=== PATIENT | female | born 1990 | race Caucasian/White ===

== ENCOUNTER 2023-03-18 20:19 | Emergency (ER) | payer MEDICARE, MEDICAID, SELFPAY ==
[2023-03-18 20:21] VITALS: BP 140/88
[2023-03-18 20:31] LABS: Glucose - Point of Care 359 mg/dl (70-99)
--- NOTE | 2023-03-18 21:00 | ED.GENMED ---
History of Present Illness
General
Chief Complaint: Seizure
Source: family
Exam Limitations: none
Time Seen by Provider: 03/18/23 20:38
Travel History
Have you had any contact with someone who has COVID-19?: No
Do you have any symptoms of coronavirus? Fever > 100 degrees, chills, cough, shortness of breath, sore throat, loss of taste or smell, muscle aches, or headache?: No
History of Present Illness
History of Present Illness:
See MDM
Past History
Past History
ED Past Medical History: NIDDM, Seizures and Other (Autism)
ED Past Surgical History: Cholecystectomy and Urological
Patient has exhibited threatening behavior?: No
PSI?: No
Social History
Tobacco: Non-smoker
Alcohol: None
Drug: None
Personal: Single
Living: with family
Employment: Not employed
Family History
Family History: Other (n/c)
Phy Exam
Physical Exam
Physical Exam:
See MDM
Course
Orders/Labs/Results
Orders:
Orders
03/18/23 20:48
0.9% Sodium Chloride 1000 ml [Nss] 1,000 ml IV BOLUS
Insulin Aspart [NOVOLOG vial] 9 units SC NOW STA
Lorazepam [Ativan] 1 mg IV NOW STA
03/18/23 21:14
Complete Blood Count/With Diff Urgent
Comprehensive Metabolic Panel Urgent
Abnormal Lab Results
03/18/23 03/18/23
20:29 21:14
Hct 36.7 L %
(37.0-47.0)
Immature Gran % 0.6 H %
(0-0.5)
Sodium 130 L mmol/L
(135-145)
Glucose 310 H mg/dl
(70-99)
POC Glucose 359 H mg/dl
(70-99)
03/18/23 21:14
03/18/23 21:14
Vital Signs
Initial and Last Documented VS:
Initial Vital Signs
Temp Pulse Resp BP Pulse Ox
98.3 F 88 18 140/88 95
03/18/23 20:21 03/18/23 20:21 03/18/23 20:21 03/18/23 20:21 03/18/23 20:21
Last Documented Vital Signs
Temp Pulse Resp BP Pulse Ox
98.3 F 85 18 109/91 98
03/18/23 20:21 03/18/23 22:08 03/18/23 22:08 03/18/23 22:14 03/18/23 22:08
MDM/Problems Addressed
Differential Diagnosis Includes:
HPI and MDM Narrative:
32-year-old female presenting with 2 seizures earlier today. Patient has a history of diabetes and autism. She has a seizure disorder for which she is on Onfi and Fycompa. Patient is compliant with her Onfi but she has been out of her Fycompa for
several weeks. When questioned, mother at bedside stating that the pharmacy was waiting for shipment until they finally told her that they believe the 12 mg tabs are discontinued.
Mother states she called and left a message for the oncologist Dr. Varela but she has not heard back
Patient found to be hyperglycemic. Mother states she has not received her insulin shot at home and she was drinking cranberry juice.
I had a long discussion with mother indicating that Fycompa is not on formulary here. I discussed that I am happy to write the 6 mg tablets instead. Mother is very comfortable with this plan. In the meantime, will give dose of Ativan and will
obtain basic blood work.
Physical exam
General: Sitting in bed comfortably. Appears to be at baseline mental status
HEENT: protecting airway. Dry mucous membranes
Neck: appears supple
CV: No evidence of cyanosis
Resp: No accessory muscle use
Abd: Non-distended
Extremities: No deformities
Neuro: alert. Moving all extremity
Psych: Flat affect
Skin: Intact
Problems Addressed including Acute and Chronic Conditions affecting care:
1. Breakthrough seizures
Acuity: acute
Prognosis: unstable
Details: Appears to be related to not taking the Fycompa. Will give dose of Ativan and prescribe Fycompa in different milligram tablets
2. Hyperglycemia
Acuity: acute
Prognosis: unstable
Details: Will give dose of insulin and rule out DKA
3. Dehydration
Acuity: acute
Prognosis: stable
Details: Will give IV fluids
Updates
No seizure activity while in the emergency department. Will write for Ativan as needed until the Fycompa prescription can be filled. Mother feels comfortable going home and understands return precautions
Differential Diagnosis (but not limited to): Hyperglycemia, DKA, dehydration
Testing considered: CT head
Drug therapy (if applicable): OTC meds, please see d/c instruction regarding Rx drugs
Amount and/or Complexity of Data Reviewed
Clinical info obtained from: Mother
External data reviewed: N/A
Labs I independently reviewed (but not limited to): Hyperglycemia, no leukocytosis
Radiology: N/A
Pulse Ox: not hypoxic
EKG independently reviewed: N/A
Cabinetmaker Supervisor: N/A
Critical Care: N/A
Risk of Complication:
Social Determinants of health: Good social support
Discussed with other providers: N/A
Escalation of Care includes Admit/Obs: After being observed in the Emergency Department, pt stable for discharge.
Occasional wrong word or 'sound a like' substitutions may have occurred due to the inherent limitations of voice recognition software. Read the chart carefully and recognize, using context, where substitutions have occurred.
*Critical Care Note
Total Time (30-74mins, 75-104mins- exclusive of procedures): Not Applicable
ED Attending Note
-
Portions of this chart may have been created with voice recognition software.� Occasional wrong word or��sound alike� substitutions may have occurred due to the inherent limitations of voice recognition software.
Discharge Plan
Departure
Patient Disposition: Home (Routine Discharge)
Date of Disposition: 03/18/23
Time of Disposition: 22:33
Patient with high blood pressure during this ER visit?: No
Discharge Problem:
Breakthrough seizure, Hyperglycemia
Instructions: Seizures, Adult (DC)
Prescriptions:
New
Fycompa 6 mg tablet
12 mg PO HS 30 Days Qty: 60 0RF
lorazepam [Ativan] 1 mg tablet
1 mg PO BID PRN (Reason: seizure) Qty: 14 0RF
No Action
clobazam [Onfi] 20 MG tablet
20 mg PO BID
atorvastatin 40 MG tablet
40 mg PO DAILY@1500
famotidine 40 MG tablet
40 mg PO DAILYPRN PRN (Reason: heartburn)
esomeprazole magnesium [Nexium] 40 MG capsule,delayed release(DR/EC)
40 mg PO DAILY
zolpidem 12.5 MG tablet,ext release multiphase
12.5 mg PO HSPRN PRN (Reason: sleep)
Fycompa 12 MG tablet
12 mg PO QPM
metformin 500 MG tablet extended release 24 hr
500 mg PO DAILY@1200
escitalopram oxalate 10 MG tablet
15 mg PO DAILY
insulin degludec [Tresiba FlexTouch U-100] 100 UNIT/ML insulin pen
16 unit SQ HS
Rx Instructions:
13 units given last PM, 04/09/22.
acetaminophen [Tylenol Extra Strength] 500 MG tablet
500 mg PO Q4HPRN PRN (Reason: pain)
sulfamethoxazole-trimethoprim [Bactrim DS] 800-160 mg tablet
1 tab PO BID 10 Days Qty: 20 0RF
Marijauna
75 ml PO DAILY@1900
naproxen sodium [All Day Pain Relief] 220 mg tablet
440 mg PO BID PRN (Reason: pain) Qty: 1 0RF
tramadol 50 mg tablet
50 mg PO TID PRN (Reason: severe pain) Qty: 10 0RF
methenamine hippurate 1 gram tablet
1 g PO BID Qty: 180 3RF
Rx Instructions:
start on day AFTER finishing Bactrim [Trimethoprim-Sulfa DS]
water Liquid
500 ea PO TID @ 0800,1200,1700 Qty: 500 0RF
Referrals:
Amira Kim MD [Family Provider] -
Activity Restrictions/Additional Instructions:
As we discussed, please follow-up with your neurologist. If you cannot fill the prescription, please make the neurology office aware. Return for worsening symptoms
Interventions
Interventions:
*Risk Screen - Suicide Last Done: 03/18/23 22:08
*General Assessment Last Done: 03/18/23 22:08
*Neglect/Abuse Screening Last Done: 03/18/23 22:08
*ED COVID-19 Vaccine History Last Done: 03/18/23 20:21
ED- Cardiac Assessment Last Done: 03/18/23 22:05
ED- Neurological Assessment Last Done: 03/18/23 22:05
ED- Pulmonary Assessment Last Done: 03/18/23 22:05
[2023-03-18 21:18] LABS: % Basophils 0.3 % (0-2); % Eosinophils 2.5 % (0-6); % Immature Granulocytes 0.6 % (0-0.5); % Lymphocytes 21.2 % (20.5-51.1); % Monocytes 4.3 % (1.7-9.3); % Neutrophils 71.1 % (42.2-75.2); Absolute Eosinophils 0.2 10^3/uL (0-0.7); Absolute Lymphocytes 1.3 10^3/uL (1.2-3.4); Absolute Monocytes 0.3 10^3/uL (0.1-0.6); Absolute Neutrophils 4.5 10^3/uL (1.4-6.5); Hematocrit 36.7 % (37.0-47.0); Mean Corp Hgb Conc. 35.4 g/dL (33.0-37.0); Mean Corpuscular Hgb 30.2 pg (27.0-31.0); Mean Corpuscular Volume 85.3 fL (81.0-99.0); Mean Platelet Volume 10.1 fL (7.4-10.4); Nucleated Red Blood Cells % 0 %; Platelet Count 222 10^3/uL (130-400); Red Cell Dist. Width 13.2 % (11.5-14.5); White Blood Cell Count 6.3 10^3/uL (4.8-10.8)
[2023-03-18] MEDS: ATIVAN 1 MG IV (21:33)
[2023-03-18] MEDS: NOVOLOG vial 9 UNITS SC (21:34)
[2023-03-18 21:36] LABS: ALT (SGPT) 24 U/L (0-35); AST (SGOT) 24 U/L (14-36); Alkaline Phosphatase 88 U/L (38-126); Blood Urea Nitrogen 14 mg/dl (7-17); Calcium 8.4 mg/dl (8.4-10.2); Carbon Dioxide 23 mmol/L (22-30); Chloride 102 mmol/L (98-107); Glucose 310 mg/dl (70-99); Potassium 3.9 mmol/L (3.5-5.1); Sodium 130 mmol/L (135-145); Total Bilirubin 0.6 mg/dl (0.2-1.3); Total Protein 6.6 g/dl (6.3-8.2); eGFR > 60.00
[2023-03-18] MEDS: NSS 1000 IV (21:36)
[2023-03-18 22:08] VITALS: BP 98/67
[2023-03-18 22:14] VITALS: BP 109/91
[2023-03-18] MEDS: ATIVAN 1 MG PO (22:51)
== END 2023-03-18 22:59 | disposition home or self-care (01) ==
LOC: EMR 20:19
PROVIDERS: EMERGENCY PHYSICIAN Student in an Organized Health Care Education/Training Program; FAMILY PHYSICIAN Family Medicine
DX: G40.909 Epilepsy, unspecified, not intractable, without status epilepticus (principal); E11.65 Type 2 diabetes mellitus with hyperglycemia; F84.0 Autistic disorder; Z90.49 Acquired absence of other specified parts of digestive tract
CPT/HCPCS: 99283; 96374; 96361; 80053; 82962; 85025

== ENCOUNTER 2023-05-12 15:34 | Emergency (ER) | payer MEDICARE, MEDICAID, SELFPAY ==
[2023-05-12 15:35] VITALS: BP 123/76
--- NOTE | 2023-05-12 17:48 | ED.GENMED ---
History of Present Illness
General
Chief Complaint: Seizure
Source: patient, family (Mother) and career and guidance counselor
Exam Limitations: other (Autism)
Time Seen by Provider: 05/12/23 16:35
Nursing documentation reviewed up to this point in time: agreed with
Travel History
Have you had any contact with someone who has COVID-19?: No
Do you have any symptoms of coronavirus? Fever > 100 degrees, chills, cough, shortness of breath, sore throat, loss of taste or smell, muscle aches, or headache?: No
History of Present Illness
History of Present Illness:
32-year-old female with a past medical history of autism, seizure disorder, diabetes who presents to the emergency room with her mother and her caregiver for evaluation of congestion and cough. Patient is very limited as a historian due to her
autism. Most of history obtained from mother and caregiver who are at bedside. Apparently patient has been sick for the past week with significant congestion and greenish-yellow rhinorrhea. Mother feels that this issue is worsening and patient is
having trouble breathing through her nose. Patient has also been having a hacking cough nonproductive over that period of time which mother says is getting worse. Friday patient had a seizure which frequently happens when she is sick. Mother says
with her symptoms not improving she finally decided to bring patient to the emergency room for assessment. Aside from above symptoms mother reports increased fatigue and sleepiness. Mother has not noted any fever. No GI issues noted. No other
symptoms noted.
Past History
Past History
ED Past Medical History: NIDDM, Seizures and Other (Autism)
ED Past Surgical History: Cholecystectomy and Urological
Patient has exhibited threatening behavior?: No
PSI?: No
Social History
Tobacco: Non-smoker
Alcohol: None
Drug: None
Personal: Single
Living: with family
Employment: Not employed
Family History
Family History: Other (n/c)
Review of Systems
Review of Systems
Unable to obtain full review of systems at this time due to: other (Autism)
All Other Systems: Not applicable
Phy Exam
Physical Exam
Physical Exam:
General: Laying in bed sleeping but easily arousable; does not appear to be in distress
Head: Normocephalic, atraumatic
Eyes: Conjunctiva normal, EOMI, pupils 6 mm and briskly reactive to light bilaterally
Ears: TMs clear bilaterally
Nose: Copious rhinorrhea
Throat: Airway intact, handling secretions
Neck: Trachea midline, supple without meningismus
Lungs: Clear to auscultation bilaterally, no wheezing, rales, rhonchi
Heart: Regular rate and rhythm, no murmurs, gallops, or rubs
Abd: Soft, non distended, no apparent tenderness and no masses
Skin: no rash
Extremities: No edema in extremities, warm and well-perfused
Scores
Heart Failure Risk
Heart Failure Risk Score: Not Applicable
Heart Score for Chest Pain Patients
STEMI patient?: Not applicable
Withdrawal Assessment of Alcohol
Withdrawal Assessment Completed?: Not applicable
Course
Orders/Labs/Results
Orders:
Orders
05/12/23 17:47
CR Chest - 2 Views Urgent
Comment:
Reason For Exam: cough
05/12/23 17:48
0.9% Sodium Chloride 500 ml [Nss] 500 ml IV BOLUS
05/12/23 17:55
COVID-19 Antigen Urgent
Source: Nasal Swab
Complete Blood Count/With Diff Urgent
Comprehensive Metabolic Panel Urgent
Influenza A+B Rapid Molecular Urgent
ARIE Source: Nasal Swab
Specimen Description:
05/12/23 17:56
Electrocardiogram (*1) Urgent
Reason for Study: Other
Other Reason for Exam: seizure
EKG- Treatment ONCE
05/12/23 19:59
Amoxicillin 875 mg/Clav 125 mg [Augmentin 875 mg/125 mg] 1 tablet PO NOW STA
Abnormal Lab Results
05/12/23
17:55
Hct 36.1 L %
(37.0-47.0)
Abs Immat Gran (auto) 0.1 H 10^3/uL
(0-0.05)
Immature Gran % 1.8 H %
(0-0.5)
Eosinophils % 6.3 H %
(0-6)
Sodium 134 L mmol/L
(135-145)
Glucose 108 H mg/dl
(70-99)
Alkaline Phosphatase 127 H U/L
(38-126)
05/12/23 17:55
05/12/23 17:55
Vital Signs
Initial and Last Documented VS:
Initial Vital Signs
Temp Pulse Resp BP Pulse Ox
36.8 C 82 22 123/76 97
05/12/23 15:35 05/12/23 15:35 05/12/23 15:35 05/12/23 15:35 05/12/23 15:35
Last Documented Vital Signs
Temp Pulse Resp BP Pulse Ox
36.8 C 82 22 123/76 97
05/12/23 15:35 05/12/23 15:35 05/12/23 15:35 05/12/23 15:35 05/12/23 15:35
MDM/Problems Addressed
Differential Diagnosis Includes:
Sinus infection, pneumonia, viral syndrome
MDM/Problems Addressed:
32-year-old female presents with increasing congestion/rhinorrhea and cough over the past week. Had a breakthrough seizure Friday which tends to happen when patient is ill per mother. Vital signs here are normal. Exam as above. Will check basic
labs including a CBC and a CMP, viral swabs, chest x-ray to rule out pneumonia. Provide some fluids. Reassess after the above.
Labs reviewed CBC and CMP unremarkable, COVID and flu negative. Chest x-ray reviewed by me shows no pneumonia, low lung volumes. Clinical reassessment patient is awake and alert well-appearing with normal vitals. Given report of copious greenish
nasal discharge concern for potential bacterial rhinosinusitis will cover with antibiotics. Will have patient follow-up with ENT as an outpatient. Mother feel comfortable with this plan. Spoke about return precautions all questions answered.
Chronic conditions affecting care:
Autism, seizure disorder
*Radiology
Radiology exam reviewed: preliminary read by ED provider and radiology read reviewed
*Pulse Oximetry
Patient hypoxic: no
*Critical Care Note
Total Time (30-74mins, 75-104mins- exclusive of procedures): Not Applicable
Data Reviewed
Review of Other/Old Records Reveals: Labs and Records
Source: family and career and guidance counselor
ED Attending Note
-
Portions of this chart may have been created with voice recognition software.� Occasional wrong word or��sound alike� substitutions may have occurred due to the inherent limitations of voice recognition software.
Discharge Plan
Departure
Patient Disposition: Home (Routine Discharge)
Date of Disposition: 05/12/23
Time of Disposition: 19:59
Patient with high blood pressure during this ER visit?: No
Discharge Problem:
Sinus infection
Instructions: Sinusitis, Adult (DC)
Prescriptions:
New
amoxicillin-pot clavulanate 875-125 mg tablet
1 tab PO BID 10 Days Qty: 20 0RF
No Action
clobazam [Onfi] 20 MG tablet
20 mg PO BID
atorvastatin 40 MG tablet
40 mg PO DAILY@1500
famotidine 40 MG tablet
40 mg PO DAILYPRN PRN (Reason: heartburn)
esomeprazole magnesium [Nexium] 40 MG capsule,delayed release(DR/EC)
40 mg PO DAILY
zolpidem 12.5 MG tablet,ext release multiphase
12.5 mg PO HSPRN PRN (Reason: sleep)
Fycompa 12 MG tablet
12 mg PO QPM
metformin 500 MG tablet extended release 24 hr
500 mg PO DAILY@1200
escitalopram oxalate 10 MG tablet
15 mg PO DAILY
insulin degludec [Tresiba FlexTouch U-100] 100 UNIT/ML insulin pen
16 unit SQ HS
Rx Instructions:
13 units given last PM, 04/09/22.
acetaminophen [Tylenol Extra Strength] 500 MG tablet
500 mg PO Q4HPRN PRN (Reason: pain)
sulfamethoxazole-trimethoprim [Bactrim DS] 800-160 mg tablet
1 tab PO BID 10 Days Qty: 20 0RF
Marijauna
75 ml PO DAILY@1900
naproxen sodium [All Day Pain Relief] 220 mg tablet
440 mg PO BID PRN (Reason: pain) Qty: 1 0RF
tramadol 50 mg tablet
50 mg PO TID PRN (Reason: severe pain) Qty: 10 0RF
methenamine hippurate 1 gram tablet
1 g PO BID Qty: 180 3RF
Rx Instructions:
start on day AFTER finishing Bactrim [Trimethoprim-Sulfa DS]
water Liquid
500 ea PO TID @ 0800,1200,1700 Qty: 500 0RF
Fycompa 6 mg tablet
12 mg PO HS 30 Days Qty: 60 0RF
lorazepam [Ativan] 1 mg tablet
1 mg PO BID PRN (Reason: seizure) Qty: 14 0RF
Referrals:
Kevin Benavidez MD [Active] - Call in 1-3 days for appt
UNKNOWN - PT DOES,NOT KNOW [Unknown Provider] -
Activity Restrictions/Additional Instructions:
Thank you for visiting the Emergency Department at [facility].
1. Please schedule a follow up appointment as directed. Call first thing tomorrow morning to make an appointment.
2. If indicated, please take your medications as instructed and indicated on discharge paperwork.
3. If any of your symptoms do not improve, or persist, or become more severe within 6-12 hours, please return to the emergency department for further care.
4. Please return to the emergency department if you develop a headache, neck pain/stiffness, fever greater than 100.4F, chest pain, shortness of breath, persistent nausea, vomiting, slurred speech, difficulty walking, numbness/tingling, weakness,
signs of infection or any other symptoms that are worrisome to you.
Please call [phone] if you have any questions.
Interventions
Interventions:
*Risk Screen - Suicide Last Done: 05/12/23 15:37
*General Assessment Last Done: 05/12/23 15:37
*Neglect/Abuse Screening Last Done: 05/12/23 15:37
ED- Cardiac Assessment Last Done: 05/12/23 16:50
ED- Neurological Assessment Last Done: 05/12/23 16:50
ED- Pulmonary Assessment Last Done: 05/12/23 16:50
[2023-05-12] MEDS: NSS 500 IV (17:54)
[2023-05-12 18:20] LABS: % Eosinophils 6.3 % (0-6); % Immature Granulocytes 1.8 % (0-0.5); % Lymphocytes 35.9 % (20.5-51.1); % Monocytes 5.9 % (1.7-9.3); % Neutrophils 49.1 % (42.2-75.2); Absolute Basophils 0.1 10^3/uL (0-0.2); Absolute Eosinophils 0.4 10^3/uL (0-0.7); Absolute Immature Granulocytes 0.1 10^3/uL (0-0.05); Absolute Lymphocytes 2.2 10^3/uL (1.2-3.4); Absolute Monocytes 0.4 10^3/uL (0.1-0.6); Absolute Neutrophils 3.1 10^3/uL (1.4-6.5); Hematocrit 36.1 % (37.0-47.0); Hemoglobin 12.6 g/dL (12.0-16.0); Mean Corp Hgb Conc. 34.9 g/dL (33.0-37.0); Mean Corpuscular Hgb 29.9 pg (27.0-31.0); Mean Corpuscular Volume 85.7 fL (81.0-99.0); Mean Platelet Volume 9.9 fL (7.4-10.4); Nucleated Red Blood Cells % 0 %; Platelet Count 249 10^3/uL (130-400); Red Blood Cell Count 4.21 10^6/uL (4.20-5.40); Red Cell Dist. Width 13.2 % (11.5-14.5); White Blood Cell Count 6.2 10^3/uL (4.8-10.8)
[2023-05-12 18:29] LABS: COVID-19 Antigen Negative (Negative)
[2023-05-12 18:30] LABS: ALT (SGPT) 20 U/L (0-35); AST (SGOT) 21 U/L (14-36); Albumin 3.9 g/dl (3.5-5.0); Alkaline Phosphatase 127 U/L (38-126); Blood Urea Nitrogen 16 mg/dl (7-17); Calcium 8.8 mg/dl (8.4-10.2); Carbon Dioxide 25 mmol/L (22-30); Chloride 104 mmol/L (98-107); Glucose 108 mg/dl (70-99); Potassium 3.9 mmol/L (3.5-5.1); Sodium 134 mmol/L (135-145); Total Bilirubin 0.5 mg/dl (0.2-1.3); Total Protein 6.8 g/dl (6.3-8.2); eGFR > 60.00
[2023-05-12] MEDS: AUGMENTIN 875 MG/125 MG 1 TABLET PO (20:11)
== END 2023-05-12 20:28 | disposition home or self-care (01) ==
LOC: EMR 15:34
PROVIDERS: EMERGENCY PHYSICIAN Emergency Medicine; FAMILY PHYSICIAN Family Medicine
DX: J01.90 Acute sinusitis, unspecified (principal); G40.909 Epilepsy, unspecified, not intractable, without status epilepticus; F84.0 Autistic disorder; Z11.52 Encounter for screening for COVID-19
CPT/HCPCS: 99284; 96360; 71046; 80053; 85025; 87502; 87811

== ENCOUNTER → 2023-07-08 07:08 | Outpatient (REF) | payer MEDICARE, MEDICAID, SELFPAY | LOC: HWRAD 07:08 | PROVIDERS: ATTENDING PHYSICIAN Specialist; FAMILY PHYSICIAN Family Medicine | DX: K75.81 Nonalcoholic steatohepatitis (NASH) (principal) | CPT/HCPCS: 76700 ==

== ENCOUNTER 2024-03-14 09:08 | Emergency (ER) | payer MEDICARE, MEDICAID, SELFPAY ==
[2024-03-14 09:12] VITALS: BP 125/94
--- NOTE | 2024-03-14 10:58 | ED.GENMED ---
History of Present Illness
General
Chief Complaint: Skin Problem
Source: transitional care manager
Exam Limitations: non verbal-adult and developmental stage
Time Seen by Provider: 03/14/24 10:07
Nursing documentation reviewed up to this point in time: agreed with
History of Present Illness
History of Present Illness:
33 y/o F
nonverbal autistic
IDDM
for 2 days her aides and mom have noticed intermittent bleeding from her L ear
they think she scratched herself and cut her ear
she doesn't perceive pain normally
no recent illness, fever
normal blood sugars
does usually have self-influcting pain behaviors
no recent URI
Past History
Past History
ED Past Medical History: NIDDM, Seizures and Other (Autism)
ED Past Surgical History: Cholecystectomy and Urological
Patient has exhibited threatening behavior?: No
PSI?: No
Social History
Tobacco: Non-smoker
Alcohol: None
Drug: None
Personal: Single
Living: with family
Employment: Not employed
Family History
Family History: Other (n/c)
Review of Systems
Review of Systems
Allergies reviewed?: Yes
All Other Systems: Not applicable
Phy Exam
Physical Exam
Physical Exam:
GENERAL: Alert ,autistic
EYE: pupils equal and reactive
NECK: Supple
ENT: L tragus has a small lacereation 0.25 cm slightly swollen and slightly pink no drainage, no bleeding
L auricle laceration superficial apprx 1 cm and linear and not bleeding, notnnder
no mastoid tenderness
drinage int he ear natasha
irrigated the ear canal and the TM does look slightly dull but intact
does not appear like LUDIVINA
but concenred that she is diagbietc
PSYCH: autistic
Course
Orders/Labs/Results
Orders:
Orders
03/14/24 10:59
Amoxicillin 875 mg/Clav 125 mg [Augmentin 875 mg/125 mg] 1 tablet PO NOW STA
Vital Signs
Initial and Last Documented VS:
Initial Vital Signs
Temp Pulse Resp BP Pulse Ox
37.4 C 83 18 125/94 97
03/14/24 09:12 03/14/24 09:12 03/14/24 09:12 03/14/24 09:12 03/14/24 09:12
Last Documented Vital Signs
Temp Pulse Resp BP Pulse Ox
37.4 C 78 18 122/78 96
03/14/24 11:20 03/14/24 11:20 03/14/24 11:20 03/14/24 11:20 03/14/24 11:20
Procedures
Laceration Closure
Left Ear:
Status of Wound: clean
Size of Wound in cm: 1
Description of Wound Edges: sharp and flap-well vascularized
Preparation: cleaned with saline
Revision/Debridement: routine- no revision
Wound exploration: extensive cleaning of contaminated wound
Type of Closure: Dermabond-skin glue
MDM/Problems Addressed
Differential Diagnosis Includes:
OTITIS EXTERNA, LACERATIN, ABSCESS, PERF TM
MDM/Problems Addressed:
33 y/o F
laceration 2 places to L ear
pt is autistic
diabetic
nonverbal
often times hits herself
family noticed intermittent bleeding from ear
no fever
bg normal at home
has 24 hour care
on exam pt has 2 pepe : 1 to tragus that looks like 0.25 cm laceration that is slightly inflamed and tender
no obvious abscess
2nd is superficial laceration to the auricle
both not bleeding
in the canal there is blood/drainage/cloudy brown liquid
it was irrigated with warm water and h202 and no perforation found
but the canal is slightly swollen
given her h/o DM
will cover with oflox drops and augmentin in case the skin laceration is getting infected
glue applied to the larger lac
*Critical Care Note
Total Time (30-74mins, 75-104mins- exclusive of procedures): Not Applicable
ED Attending Note
-
Portions of this chart may have been created with voice recognition software.� Occasional wrong word or��sound alike� substitutions may have occurred due to the inherent limitations of voice recognition software.
Discharge Plan
Departure
Patient Disposition: Home (Routine Discharge)
Date of Disposition: 03/14/24
Time of Disposition: 11:01
Patient with high blood pressure during this ER visit?: No
Condition: Fair
Covid-19: Not Applicable
Discharge Problem:
Ear lobe laceration, Otitis externa
Instructions: Laceration Repair With Glue ED, Ear infection - ED discharge instructions
Prescriptions:
New
ofloxacin 0.3 % drops
5 drp otic (ear) BID 7 Days Qty: 5 0RF
amoxicillin-pot clavulanate 875-125 mg tablet
1 tab PO BID Qty: 14 0RF
No Action
clobazam [Onfi] 20 MG tablet
20 mg PO BID
atorvastatin 40 MG tablet
40 mg PO DAILY@1500
famotidine 40 MG tablet
40 mg PO DAILYPRN PRN (Reason: heartburn)
esomeprazole magnesium [Nexium] 40 MG capsule,delayed release(DR/EC)
40 mg PO DAILY
zolpidem 12.5 MG tablet,ext release multiphase
12.5 mg PO HSPRN PRN (Reason: sleep)
Fycompa 12 MG tablet
12 mg PO QPM
metformin 500 MG tablet extended release 24 hr
500 mg PO DAILY@1200
escitalopram oxalate 10 MG tablet
15 mg PO DAILY
insulin degludec [Tresiba FlexTouch U-100] 100 UNIT/ML insulin pen
16 unit SQ HS
Rx Instructions:
13 units given last PM, 04/09/22.
acetaminophen [Tylenol Extra Strength] 500 MG tablet
500 mg PO Q4HPRN PRN (Reason: pain)
sulfamethoxazole-trimethoprim [Bactrim DS] 800-160 mg tablet
1 tab PO BID 10 Days Qty: 20 0RF
Marijauna
75 ml PO DAILY@1900
naproxen sodium [All Day Pain Relief] 220 mg tablet
440 mg PO BID PRN (Reason: pain) Qty: 1 0RF
tramadol 50 mg tablet
50 mg PO TID PRN (Reason: severe pain) Qty: 10 0RF
methenamine hippurate 1 gram tablet
1 g PO BID Qty: 180 3RF
Rx Instructions:
start on day AFTER finishing Bactrim [Trimethoprim-Sulfa DS]
water Liquid
500 ea PO TID @ 0800,1200,1700 Qty: 500 0RF
Fycompa 6 mg tablet
12 mg PO HS 30 Days Qty: 60 0RF
lorazepam [Ativan] 1 mg tablet
1 mg PO BID PRN (Reason: seizure) Qty: 14 0RF
amoxicillin-pot clavulanate 875-125 mg tablet
1 tab PO BID 10 Days Qty: 20 0RF
Referrals:
Amira Kim MD [Family Provider] - Follow up in 2-3 days
Activity Restrictions/Additional Instructions:
KENNETH PROBABLY HAS 2 ISSUES GOING ON
SHE LOOKS TO HAVE 2 SUPREFICIAL CUTS ON HER EAR: ONE ON THE TRAGUS AND ONE ON THE AURICLE
THE TRAGUS ONE IS SLIGHTLY SWOLLEN AND LOOKED INFLAMED. NEITHER WERE BLEEDING HERE
THE AURICLE ONE WAS CLOSED WITH SKIN GLUE. KEEP IT DRY MUCH POSSIBLE FOR 2 DAYS AND THEN THE GLUE WILL PEEL UP AND FALL OFF
TO TREAT FOR A POSSIBLE EAR INFECTIon (BECASUE SHE HAS EAR DRAINAGE IN THE CANAL) AND SHE IS DIABETIC, GIVE HER AUGMENTIN TWICE A DAY AND PUT THE EAR DROPS IN HER EAR TWICE A DAY FOR 7 DAYS
WATCH THE AREAS TO BE SURE THE EAR DOESN'T SWELL, RETURN FOR: SWELLING, FEVER, WORSE BLEEDING, REDNESS AROUND HER EAR OR ANY CONCENRS.
Interventions
Interventions:
*Risk Screen - Suicide Last Done: 03/14/24 09:12
*General Assessment Last Done: 03/14/24 09:12
*Neglect/Abuse Screening Last Done: 03/14/24 09:12
ED- Fall Risk Assessment Last Done: 03/14/24 10:39
*ED COVID-19 Vaccine History Last Done: 03/14/24 10:48
*Nursing Disposition Last Done: 03/14/24 11:20
ED-Skin Assessment Last Done: 03/14/24 10:48
Discharge Date and Time
Discharge Date/Time: 03/14/24 11:15
Print Language: UKRAINIAN
[2024-03-14] MEDS: AUGMENTIN 875 MG/125 MG 1 TABLET PO (11:08)
--- NOTE | 2024-03-14 11:15 | EDRN ---
Reviewed discharge instructions with patient's caregiver. Verbalized understanding. Ambulated with steady gait to the lobby.
[2024-03-14 11:20] VITALS: BP 122/78
== END 2024-03-14 11:15 | disposition home or self-care (01) ==
LOC: EMR 09:08
PROVIDERS: EMERGENCY PHYSICIAN Student in an Organized Health Care Education/Training Program; FAMILY PHYSICIAN Family Medicine
DX: H60.92 Unspecified otitis externa, left ear (principal); S01.312A Laceration without foreign body of left ear, initial encounter; X58.XXXA Exposure to other specified factors, initial encounter; F84.0 Autistic disorder; E11.9 Type 2 diabetes mellitus without complications
CPT/HCPCS: 99284; 12051

== ENCOUNTER 2024-05-28 11:49 | Emergency (ER) | payer MEDICARE, MEDICAID, SELFPAY ==
[2024-05-28 11:56] VITALS: BP 140/88
--- NOTE | 2024-05-28 13:34 | ED.GENMED ---
History of Present Illness
General
Chief Complaint: Fall
Source: patient, family (Mother at bedside) and patient care secretary
Exam Limitations: non verbal-adult
Time Seen by Provider: 05/28/24 13:18
Nursing documentation reviewed up to this point in time: agreed with
History of Present Illness
History of Present Illness:
Patient is a 34-year-old nonverbal adult with history of autism presenting to the emergency department after fall with associated head strike 4 days ago. Patient unable to contribute to history as she is nonverbal. However�patient's aide and mom
states that she was on the treadmill about 4 days ago when she fell striking the front of her face on the treadmill. They state that she never lost consciousness. She did seem mildly confused after the fall and they wonder if she may have had an
mild seizure or if it was a mechanical fall. She does have a history of epilepsy and is compliant with medications. Apparently she tends to have mild breakthrough seizures during her menstrual cycle which is currently occurring
Patient seems to be acting normally since fall. She has not indicated that she has any headache. However�she was seen by primary care today given worsening ecchymoses around left eye. She had an episode of vomiting in PCPs office prompting
referral to emergency department for CT imaging.
Patient has been ambulating independently without difficulty. She has been eating and drinking normally.
Past History
Past History
ED Past Medical History: NIDDM, Seizures and Other (Autism)
ED Past Surgical History: Cholecystectomy and Urological
Patient has exhibited threatening behavior?: No
PSI?: No
Social History
Tobacco: Non-smoker
Alcohol: None
Drug: None
Personal: Single
Living: with family
Employment: Not employed
Family History
Family History: Other (n/c)
Review of Systems
Review of Systems
Allergies reviewed?: Yes
All Other Systems: ROS reviewed and negative except as documented in HPI and ROS
Phy Exam
Physical Exam
Physical Exam:
GENERAL: No acute distress
HEENT: Superficial healing laceration on top of scalp with overlying scab, ecchymoses of left infraorbital region extending to nasal bridge, no deformity to nasal bridge, no septal unable to accurately test EOMs, no obvious signs of entrapment or
orbital trauma, dentition intact without tenderness to jaw or facial bones, no other obvious trauma
NECK: no midline tenderness, normal range of motion, no other obvious trauma
BACK: no midline tenderness, no other obvious trauma
CHEST: no tenderness, no flail segment, no subcutaneous emphysema, no other obvious trauma
LUNGS: clear to auscultation bilaterally
CARDIOVASCULAR: regular rate and rhythm
ABDOMEN: soft, non-tender, no masses, no other obvious trauma
PELVIS: stable, no obvious injury
EXTREMITIES: moving all extremities, distal pulses intact, no other obvious trauma
NEUROLOGIC: awake, alert. Unable to complete neuroexam given patient is nonverbal with limited ability to follow commands.
Course
Orders/Labs/Results
Orders:
Orders
05/28/24 13:33
CT Head W/o Iv Contrast Urgent
Comment:
Reason For Exam: fall, headstrike
Facial Bones wo Contrast CT [CT Facial Bones W/o Iv Contras] Urgent
Comment:
Reason For Exam: fall, left orbital swelling
Test Result ONCE
05/28/24 13:51
Basic Metabolic Panel Urgent
Complete Blood Count/With Diff Urgent
HCG, Serum Qualitative Screen Urgent
05/28/24 13:57
Tetanus/Diphth/Acelpertussis [Adacel] 0.5 ml IM .ONCE ONE
05/28/24 15:45
Amoxicillin 875 mg/Clav 125 mg [Augmentin 875 mg/125 mg] 1 tablet PO NOW STA
Abnormal Lab Results
05/28/24
13:51
Glucose 110 H mg/dl
(70-99)
05/28/24 13:51
05/28/24 13:51
Vital Signs
Initial and Last Documented VS:
Initial Vital Signs
Pulse Resp BP Pulse Ox
79 18 140/88 94
05/28/24 11:56 05/28/24 11:56 05/28/24 11:56 05/28/24 11:56
Last Documented Vital Signs
Pulse Resp BP Pulse Ox
79 18 140/88 94
05/28/24 11:56 05/28/24 11:56 05/28/24 11:56 05/28/24 11:56
MDM/Problems Addressed
Differential Diagnosis Includes:
Not limited to: Concussion, cerebral hemorrhage, orbital fracture, nasal bone fracture, abrasion, etc.
MDM/Problems Addressed:
34 year old nonverbal female presenting 4 days after fall on treadmill with head strike now with ecchymosis to left infraorbital region and episode of vomiting. Vitals stable. Physical exam as above. Patient has small healing laceration to top of
scalp with well formed scab and no active bleeding. Primary closure not indicated as wound is 4 days old. No evidence of surrounding cellulitis. There is ecchymoses to left infraorbital region extending to nasal bridge without significant overlying
tenderness. There is no other evidence of traumatic injury to head, neck, or extremities. Patient has excellent ROM in neck with no cervical spine tenderness. Unable to complete full neurologic exam as patient is nonverbal and unable to follow all
commands. She is alert and appears in no distress. Will check CT head and facial bones. Will check basic labs as mom thinks fall may have been secondary to seizure (which patient has frequent hx of and is on epileptics and endorses compliance).
Update: labs without clinically significant abnormalities. CT head without acute findings. CT facial bones does show a fracture of left lateral nasal bone. No septal hematoma on exam or obvious deformity. Will cover with abx given nasal fx and
concern for sinus involvement. Patient otherwise stable for discharge home. Advised to continue to take medications as prescribed and follow with PCP. Referral for ENT given. Return precautions discussed. Patients mom expresses understanding and
comfortable with plan.
Chronic conditions affecting care:
Autism spectrum disorder�nonverbal
Acute Exacerbation and/or Progression of Chronic Illness:
N/A
*Radiology
Radiology exam reviewed: preliminary read by ED provider and radiology read reviewed (Head CT without acute intracranial abnormalities, facial bone CT with fracture of left lateral nasal bone)
*Pulse Oximetry
Patient hypoxic: no
*EKG
Interpreted by ED Provider?: NA
*Launch Operator Interpretation
Rate: Launch Operator- N/A
*Critical Care Note
Total Time (30-74mins, 75-104mins- exclusive of procedures): Not Applicable
ED Attending Note
-
Portions of this chart may have been created with voice recognition software.� Occasional wrong word or��sound alike� substitutions may have occurred due to the inherent limitations of voice recognition software.
Discharge Plan
Departure
Patient Disposition: Home (Routine Discharge)
Date of Disposition: 05/28/24
Time of Disposition: 15:45
Patient with high blood pressure during this ER visit?: Yes
Condition: Good
Discharge Problem:
Fracture of nasal bone, Concussion
Instructions: Concussion, Adult ED, Nose Fracture ED, BLOOD PRESSURE
Prescriptions:
New
amoxicillin-pot clavulanate 875-125 mg tablet
1 tab PO BID Qty: 14 0RF
No Action
clobazam [Onfi] 20 MG tablet
20 mg PO BID
atorvastatin 40 MG tablet
40 mg PO DAILY@1500
famotidine 40 MG tablet
40 mg PO DAILYPRN PRN (Reason: heartburn)
esomeprazole magnesium [Nexium] 40 MG capsule,delayed release(DR/EC)
40 mg PO DAILY
zolpidem 12.5 MG tablet,ext release multiphase
12.5 mg PO HSPRN PRN (Reason: sleep)
Fycompa 12 MG tablet
12 mg PO QPM
metformin 500 MG tablet extended release 24 hr
500 mg PO DAILY@1200
escitalopram oxalate 10 MG tablet
15 mg PO DAILY
insulin degludec [Tresiba FlexTouch U-100] 100 UNIT/ML insulin pen
16 unit SQ HS
Rx Instructions:
13 units given last PM, 04/09/22.
acetaminophen [Tylenol Extra Strength] 500 MG tablet
500 mg PO Q4HPRN PRN (Reason: pain)
sulfamethoxazole-trimethoprim [Bactrim DS] 800-160 mg tablet
1 tab PO BID 10 Days Qty: 20 0RF
Marijauna
75 ml PO DAILY@1900
naproxen sodium [All Day Pain Relief] 220 mg tablet
440 mg PO BID PRN (Reason: pain) Qty: 1 0RF
tramadol 50 mg tablet
50 mg PO TID PRN (Reason: severe pain) Qty: 10 0RF
methenamine hippurate 1 gram tablet
1 g PO BID Qty: 180 3RF
Rx Instructions:
start on day AFTER finishing Bactrim [Trimethoprim-Sulfa DS]
water Liquid
500 ea PO TID @ 0800,1200,1700 Qty: 500 0RF
Fycompa 6 mg tablet
12 mg PO HS 30 Days Qty: 60 0RF
lorazepam [Ativan] 1 mg tablet
1 mg PO BID PRN (Reason: seizure) Qty: 14 0RF
amoxicillin-pot clavulanate 875-125 mg tablet
1 tab PO BID 10 Days Qty: 20 0RF
ofloxacin 0.3 % drops
5 drp otic (ear) BID 7 Days Qty: 5 0RF
amoxicillin-pot clavulanate 875-125 mg tablet
1 tab PO BID Qty: 14 0RF
Referrals:
Amira Kim MD [Family Provider] - Follow up in 5-7 days
Daniel Gee MD [Active] - As needed
Activity Restrictions/Additional Instructions:
Return to the emergency department with any high fevers, severe headache/neck pain, bloody nose will not stop at home, purulent nasal drainage, change in mental status, intractable nausea/vomiting, or any other concern
- As discussed�there was a small fracture of your left nasal bone noted on CT scan. You were started on a course of antibiotics to cover for possible infection
- You likely sustained a concussion with head strike on the treadmill. You should get plenty of rest and stay well-hydrated.
- Continue take all medications as prescribed. You can take Tylenol as needed for headache or pain.
- Follow-up with primary care next week for further evaluation/management and to ensure that symptoms are improving. I provided a name for an ENT doctor if needed for follow-up.
Monitor your symptoms closely and return to the emergency department with any acute worsening/new symptoms or any other concerns
Interventions
Interventions:
*Risk Screen - Suicide Last Done: 05/28/24 11:56
*General Assessment Last Done: 05/28/24 11:56
*Neglect/Abuse Screening Last Done: 05/28/24 14:07
*Nursing Disposition Last Done: 05/28/24 16:04
ED-Musculoskeletal Assessment Last Done: 05/28/24 13:58
ED- Neurological Assessment Last Done: 05/28/24 13:58
ED-Skin Assessment Last Done: 05/28/24 13:58
Discharge Date and Time
Discharge Date/Time: 05/28/24 16:04
Print Language: RWANDAN
[2024-05-28 14:04] LABS: % Basophils 0.8 % (0-2); % Eosinophils 5.1 % (0-6); % Immature Granulocytes 0.3 % (0-0.5); % Lymphocytes 28.1 % (20.5-51.1); % Monocytes 5.3 % (1.7-9.3); % Neutrophils 60.4 % (42.2-75.2); Absolute Basophils 0.1 10^3/uL (0-0.2); Absolute Eosinophils 0.3 10^3/uL (0-0.7); Absolute Lymphocytes 1.9 10^3/uL (1.2-3.4); Absolute Monocytes 0.4 10^3/uL (0.1-0.6); Hematocrit 39.9 % (37.0-47.0); Hemoglobin 13.7 g/dL (12.0-16.0); Mean Corp Hgb Conc. 34.3 g/dL (33.0-37.0); Mean Corpuscular Hgb 30.6 pg (27.0-31.0); Mean Corpuscular Volume 89.3 fL (81.0-99.0); Mean Platelet Volume 9.8 fL (7.4-10.4); Nucleated Red Blood Cells % 0 %; Platelet Count 238 10^3/uL (130-400); Red Blood Cell Count 4.47 10^6/uL (4.20-5.40); Red Cell Dist. Width 13.1 % (11.5-14.5); White Blood Cell Count 6.7 10^3/uL (4.8-10.8)
[2024-05-28 14:14] LABS: HCG, Serum Qualitative Screen Negative
[2024-05-28 14:20] LABS: Blood Urea Nitrogen 13 mg/dl (7-17); Calcium 9.4 mg/dl (8.4-10.2); Carbon Dioxide 25 mmol/L (22-30); Chloride 105 mmol/L (98-107); Glucose 110 mg/dl (70-99); Potassium 4.2 mmol/L (3.5-5.1); Sodium 138 mmol/L (135-145); eGFR > 60.00
[2024-05-28] MEDS: ADACEL 0.5 ML IM (14:47)
== END 2024-05-28 16:04 | disposition home or self-care (01) ==
LOC: EMR 11:49
PROVIDERS: Physician Assistant; EMERGENCY PHYSICIAN Emergency Medicine; FAMILY PHYSICIAN Family Medicine
DX: S02.2XXA Fracture of nasal bones, initial encounter for closed fracture (principal); S06.0XAA Concussion with loss of consciousness status unknown, initial encounter; W19.XXXA Unspecified fall, initial encounter; Z23 Encounter for immunization; E11.9 Type 2 diabetes mellitus without complications; F84.0 Autistic disorder; G40.909 Epilepsy, unspecified, not intractable, without status epilepticus; Z90.49 Acquired absence of other specified parts of digestive tract
CPT/HCPCS: 99284; 90471; 70450; 70486; 80048; 84703; 85025; 90715

== ENCOUNTER → 2024-09-09 09:19 | Outpatient (REF) | payer MEDICARE, MEDICAID, SELFPAY | LOC: WOUND 09:19 | PROVIDERS: ATTENDING PHYSICIAN Surgery; FAMILY PHYSICIAN Family Medicine | DX: S61.401A Unspecified open wound of right hand, initial encounter (principal); S61.201A Unspecified open wound of left index finger without damage to nail, initial encounter; F98.4 Stereotyped movement disorders; F84.0 Autistic disorder; E11.21 Type 2 diabetes mellitus with diabetic nephropathy; G40.319 Generalized idiopathic epilepsy and epileptic syndromes, intractable, without status epilepticus; G40.909 Epilepsy, unspecified, not intractable, without status epilepticus; X58.XXXA Exposure to other specified factors, initial encounter | CPT/HCPCS: 99203 ==

== ENCOUNTER → 2024-09-21 09:38 | Outpatient (REF) | payer MEDICARE, MEDICAID, SELFPAY | LOC: WOUND 09:38 | PROVIDERS: ATTENDING PHYSICIAN Surgery; FAMILY PHYSICIAN Family Medicine | DX: L97.222 Non-pressure chronic ulcer of left calf with fat layer exposed (principal); S61.201A Unspecified open wound of left index finger without damage to nail, initial encounter; S61.401A Unspecified open wound of right hand, initial encounter; F98.4 Stereotyped movement disorders; F84.0 Autistic disorder; E11.21 Type 2 diabetes mellitus with diabetic nephropathy; G40.319 Generalized idiopathic epilepsy and epileptic syndromes, intractable, without status epilepticus; G40.909 Epilepsy, unspecified, not intractable, without status epilepticus; W19.XXXA Unspecified fall, initial encounter | CPT/HCPCS: 99214 ==

== ENCOUNTER → 2024-09-30 10:55 | Outpatient (REF) | payer MEDICARE, MEDICAID, SELFPAY | LOC: WOUND 10:55 | PROVIDERS: ATTENDING PHYSICIAN Surgery; FAMILY PHYSICIAN Family Medicine | DX: L97.222 Non-pressure chronic ulcer of left calf with fat layer exposed (principal); F98.4 Stereotyped movement disorders; E11.21 Type 2 diabetes mellitus with diabetic nephropathy; F84.0 Autistic disorder; G40.319 Generalized idiopathic epilepsy and epileptic syndromes, intractable, without status epilepticus; G40.909 Epilepsy, unspecified, not intractable, without status epilepticus | CPT/HCPCS: 99214 ==